=== PATIENT | female | born 1965 | race Caucasian/White ===

== ENCOUNTER 2017-05-07 15:33 | Emergency (ER) | payer OTHER ==
[~2017-05-07] VITALS: Wt 72.0 kg
[~2017-05-07 15:33] MED LIST: CIPR500T4 PO; PHEN-538 PO; TRAM50TA2 PO
[2017-05-07] MEDS ORDERED: KETOROLAC 60 MG INJ IM STA (16:34)
[2017-05-07] MEDS ORDERED: OXYC-282 PO (16:43)
[2017-05-07] MEDS ORDERED: RANI150T9 PO (16:43)
[2017-05-07] MEDS ORDERED: METH500T PO (16:43)
[2017-05-07] MEDS ORDERED: NAPR-688 PO (16:43)
--- NOTE | 2017-05-07 16:47 | ERD ---
ER Documentation Chief Complaint Date/Time DATE: 05/07/17 TIME: 16:45 Chief Complaint back pain rad right leg HPI This 51-year-old female comes in with right upper buttock pain that shoots down her right leg to the level of the knee and the posterior aspect. 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 Pain is made worse by palpation, sitting on and by certain movements. She does not have a history of chronic back pain. She has had no burning on urination. No fevers or chills. ROS All systems reviewed and are negative except as per history of present illness. Medications Home Meds Active Scripts Oxycodone HCl/Acetaminophen (Percocet 2.5-325 mg Tablet) 1 Each Tablet, 1 EACH PO Q6 for PAIN, #10 TAB Prov:KATHERIN RUIZ DO 05/07/17 Naproxen* (Naproxen*) 500 Mg Tablet, 500 MG PO BID, #14 TAB Prov:MIGUEL RUIZSHUA DO 05/07/17 Ranitidine Hcl* (Zantac*) 150 Mg Tablet, 150 MG PO BID Y for EPIGASTRIC PAIN, # 30 TAB Prov:KATHERIN RUIZ DO 05/07/17 Methocarbamol* (Robaxin*) 500 Mg Tab, 500 MG PO Q6 for MUSCLE SPASMS, #20 TAB Prov:JOSEPHKATHERIN DO 05/07/17 Phenazopyridine Hcl* (Pyridium*) 200 Mg Tab, 200 MG PO TID Y for DYSURIA, #6 TAB Prov:ADAM GARCIA MD 02/17/16 Ciprofloxacin Hcl* (Ciprofloxacin Hcl*) 500 Mg Tablet, 500 MG PO BID for 7 Days , TAB Prov:ADAM GARCIA MD 02/17/16 Tramadol HCl (Tramadol HCl) 50 Mg Tablet, 50 MG PO BID, #20 TAB Prov:GOPI JURADO 11/09/15 Ciprofloxacin Hcl* (Ciprofloxacin Hcl*) 500 Mg Tablet, 500 MG PO BID for 5 Days , TAB Prov:GOPI JURADO 11/09/15 Allergies Allergies: Coded Allergies: No Known Drug Allergy (Verified Allergy, Unknown, 11/08/15) PMhx/Soc History of Surgery: Yes (HYSTERECTOMY 2010, x 2) Anesthesia Reaction: No Hx Neurological Disorder: No Hx Respiratory Disorders: No Hx Cardiac Disorders: No Hx Psychiatric Problems: No Hx Miscellaneous Medical Probl: No Hx Alcohol Use: No Hx Substance Use: No Hx Tobacco Use: No Smoking Status: Never smoker Physical Exam Vitals Vital Signs Date Time Temp Pulse Resp B/P Pulse Ox O2 Delivery O2 Flow Rate FiO2 05/07/17 15:35 98.0 94 20 152/74 99 Physical Exam Const: [] No distress Head: Atraumatic Eyes: Normal Conjunctiva ENT: Normal External Ears, Nose and Mouth. Back: No midline or flank tenderness Ext: No cyanosis, or edema, bandlike tenderness along horizontal distribution and right upper buttock consistent with piriformis muscle location. Distal pulses intact all 4 extremities. No saddle anesthesia. Neur: Awake and alert Results 24 hrs Current Medications Medications (Trade) Dose Ordered Sig/Bib Route PRN Reason Start Time Stop Time Status Last Admin Dose Admin Ketorolac Tromethamine (Toradol) 60 mg ONCE STAT IM 05/07/17 16:34 05/07/17 16:35 DC Procedures/MDM 51-year-old female with piriformis syndrome. Palpable tenderness along piriformis muscle and spasm palpable of that muscle. Patient is given 60 mg IM Toradol in the emergency room and she took the bus here. Discharging her with low-dose Percocet, Robaxin, naproxen for the next few days and primary care follow-up. I have no suspicion for cauda equina syndrome. Return precautions given. Departure Diagnosis: Primary Impression: Piriformis syndrome of left side Condition: Stable Patient Instructions: Back Pain W/ Sciatica Additional Instructions: Llame al doctor ESAU y raphael davian FABI PARA DENTRO DE 1-2 DE LA TORRE.Dgale a la secretaria que nosotros le instruimos hacer esta fabi.Avise o llame si kearns condicin se empeora antes de la fabi. Regresa aqui si peor o no mejor. KATHERIN RUIZ DO May 07, 2017 16:47
== END 2017-05-07 16:57 | disposition home or self-care (01) ==
LOC: FTE 15:33
DX: G57.02 Lesion of sciatic nerve, left lower limb (principal)
CPT/HCPCS: 96372; J1885; Z7502